=== PATIENT | male | born 1965 | race African-American/Black ===

== ENCOUNTER 2019-03-21 06:02 | Emergency (ER) | payer OTHER ==
[~2019-03-21] VITALS: Ht 193 cm; Wt 116.1 kg
[2019-03-21] MEDS ORDERED: HYDROCHLOROTHIA25 M2 PO (06:10)
[2019-03-21] MEDS ORDERED: ALLEGRA ALLERGY60 MG PO (06:11)
[2019-03-21 06:32] LABS: ABSOLUTE NEUTROPHILS 3.8 thou/uL (1.4-8.2); BASOPHILS 1.3 % (0.0-2.0); EOSINOPHILS 4.7 % (0.0-3.0); HEMATOCRIT 42.3 % (42.0-52.0); HEMOGLOBIN 14.1 gm/dL (14.0-18.0); LYMPHOCYTES 33.2 % (24.0-44.0); MCH 32.6 pg (26.0-34.0); MCHC 33.3 g/dL (28.0-37.0); MCV 97.9 fL (80.0-100.0); MONOCYTES 8.4 % (1.0-8.0); PLATELET COUNT 237 thou/uL (150-400); POLYS 52.4 % (36.0-66.0); RBC 4.32 mil/uL (4.50-6.00); RDW 13.1 % (10.5-14.5); WBC 7.3 thou/uL (4.0-11.0)
[2019-03-21 06:39] LABS: ANION GAP 10 mmol/L (7-16); BUN 16 mg/dL (7-18); CALCIUM 8.9 mg/dL (8.5-10.1); CHLORIDE 105 mmol/L (98-107); CO2 27 mmol/L (21-32); CREATININE 1.1 mg/dL (0.7-1.3); GLUCOSE 115 mg/dL (74-106); POTASSIUM 3.5 mmol/L (3.5-5.1); SODIUM 142 mmol/L (136-145)
[2019-03-21 06:48] LABS: TROPONIN-I <0.06 ng/mL (<0.06)
[2019-03-21 07:29] VITALS: BP 139/88
--- NOTE | 2019-03-21 08:16 | EKG ---
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
== END 2019-03-21 07:35 | disposition home or self-care (01) ==
LOC: ER 06:02
PROVIDERS: Emergency Medicine
DX: R07.89 Other chest pain (principal); I10 Essential (primary) hypertension; F17.200 Nicotine dependence, unspecified, uncomplicated